=== PATIENT | female | born 1990 | race Two or more races ===

== ENCOUNTER 2018-06-14 15:48 | Observation (INO) | payer BC, OTHER | END 2018-06-14 17:00 | disposition home or self-care (01) | DRG 776 | LOC: LDRP 15:48 | PROVIDERS: ADMIT Obstetrics & Gynecology; ATTEND Obstetrics & Gynecology | DX: O99.89 Other specified diseases and conditions complicating pregnancy, childbirth and the puerperium (principal); M54.9 Dorsalgia, unspecified; Z3A.34 34 weeks gestation of pregnancy | CPT/HCPCS: 59025; 76818; 81002; G0378 ==

== ENCOUNTER 2018-06-21 15:09 | Observation (INO) | payer BC | END 2018-06-21 16:25 | disposition home or self-care (01) | DRG 832 | LOC: LDRP 15:09 | PROVIDERS: ADMIT Obstetrics & Gynecology; ATTEND Obstetrics & Gynecology | DX: O23.43 Unspecified infection of urinary tract in pregnancy, third trimester (principal); N13.30 Unspecified hydronephrosis; Z3A.35 35 weeks gestation of pregnancy | CPT/HCPCS: 59025; 76818; 81002; G0378 ==

== ENCOUNTER 2018-06-27 15:47 | Observation (INO) | payer BC ==
[2018-06-27] MEDS ORDERED: PREN-96 PO (16:26)
== END 2018-06-27 16:50 | disposition home or self-care (01) | DRG 776 ==
LOC: LDRP 15:47
PROVIDERS: ADMIT Obstetrics & Gynecology; ATTEND Obstetrics & Gynecology
DX: O99.89 Other specified diseases and conditions complicating pregnancy, childbirth and the puerperium (principal); N13.30 Unspecified hydronephrosis; Z3A.37 37 weeks gestation of pregnancy
CPT/HCPCS: 59025; 76818; 81002; G0378

== ENCOUNTER 2018-07-04 17:00 | Observation (INO) | payer BC ==
[~2018-07-04 17:00] MED LIST: PREN-96 PO
== END 2018-07-04 19:50 | disposition home or self-care (01) | DRG 832 ==
LOC: LDRP 17:00
PROVIDERS: ADMIT Obstetrics & Gynecology; ATTEND Obstetrics & Gynecology
DX: O23.03 Infections of kidney in pregnancy, third trimester (principal); N13.30 Unspecified hydronephrosis; Z3A.37 37 weeks gestation of pregnancy
CPT/HCPCS: 59025; 76818; 81002; G0378

== ENCOUNTER 2018-07-10 15:09 | Observation (INO) | payer BC | END 2018-07-10 16:05 | disposition home or self-care (01) | DRG 832 | LOC: LDRP 15:09 | PROVIDERS: ADMIT Obstetrics & Gynecology; ATTEND Obstetrics & Gynecology | DX: O23.43 Unspecified infection of urinary tract in pregnancy, third trimester (principal); N13.30 Unspecified hydronephrosis; Z3A.38 38 weeks gestation of pregnancy | CPT/HCPCS: 59025; 76818; 81002; G0378 ==

== ENCOUNTER 2018-07-11 02:58 | Observation (INO) | payer BC ==
[~2018-07-11] VITALS: Ht 170.2 cm; Wt 108.9 kg
== END 2018-07-11 07:30 | disposition home or self-care (01) | DRG 833 ==
LOC: LDRP 02:58
PROVIDERS: ADMIT Obstetrics & Gynecology; ATTEND Obstetrics & Gynecology
DX: O42.913 Preterm premature rupture of membranes, unspecified as to length of time between rupture and onset of labor, third trimester (principal); O26.893 Other specified pregnancy related conditions, third trimester; N89.8 Other specified noninflammatory disorders of vagina; R10.30 Lower abdominal pain, unspecified; Z3A.38 38 weeks gestation of pregnancy
CPT/HCPCS: 59025; 76818; 81002; G0378

== ENCOUNTER 2018-07-15 23:30 | Inpatient (IN) | payer BC ==
[~2018-07-15] VITALS: Ht 170.2 cm; Wt 108.0 kg
[2018-07-15] MEDS ORDERED: LACT. RINGERS/OXYTOCIN 20UNITS 1,000 ML IV SCH (23:42)
[2018-07-15] MEDS ORDERED: LACTATED RINGER'S 1,000 ML IV SCH (23:42)
[2018-07-15] MEDS ORDERED: PHISODERM TOP SOLN 240ML BTL TOP PRN (23:45)
[2018-07-15] MEDS ORDERED: METHYLERGONOVINE MALEATE 0.2 MG/ML AMP IM PRN (23:45)
[2018-07-15] MEDS ORDERED: WITCH HAZEL-GLYCERIN PAD TOP PRN (23:45)
[2018-07-15] MEDS ORDERED: DERMOPLAST 60ML BOTTLE TOP PRN (23:45)
[2018-07-15] MEDS ORDERED: LIDOCAINE 2%HCL (LOCAL ANESTH.) INJ 20ML MDV ID PRN (23:45)
[2018-07-15] MEDS ORDERED: BUTORPHANOL TARTRATE 2 MG/1 ML VIAL IV PRN (23:45)
[2018-07-15] MEDS ORDERED: CARBOPROST TROMETHAMINE 250 MCG/1ML VIAL IM PRN (23:45)
[2018-07-16 00:06] VITALS: BP 115/57
[2018-07-16 00:26] LABS: Eosinophils # (auto) 0 uL; Eosinophils % (auto) 0.3 % (0.0-7.0); Lymphocytes # (auto) 1.6 uL
[2018-07-16 00:28] LABS: Basophils # (auto) 0 uL; Basophils % (auto) 0.3 % (0.0-2.0); Hematocrit 36.9 % (36.0-46.0); Lymphocytes % (auto) 14.8 % (10.0-50.0); Mean Corpuscular Hemoglobin 34.4 pg (28.0-32.0); Mean Corpuscular Hgb Conc. 35.2 g/dL (32.0-36.0); Mean Corpuscular Volume 97.7 fL (80.0-100.0); Monocytes # (auto) 0.7 uL; Monocytes % (auto) 6.2 % (0.0-12.0); Neutrophils # (auto) 8.6 uL; Neutrophils % (auto) 78.4 % (37.0-80.0); Platelet Count (auto) 185 10^3/uL (140-450); Red Blood Cells 3.77 10^6/uL (4.0-5.20); Red Cell Distribution Width 13.6 % (11.8-14.3)
[2018-07-16 00:40] LABS: INR 0.91 (0.9-1.15); Prothrombin Time 9.8 sec (9.27-12.13)
[2018-07-16 00:41] LABS: Urine Bacteria MOD /hpf (None Seen); Urine Blood 1+ /uL (Negative); Urine Specific Gravity 1.013 (1.001-1.035); Urine WBC 15 /hpf (0 - 5)
[2018-07-16 00:43] LABS: Albumin 2.7 g/dL (3.4-5.0); BUN/Creatinine Ratio 13.8; Calcium 8.2 mg/dL (8.5-10.1); Potassium 3.9 mmol/L (3.5-5.1)
[2018-07-16 00:46] LABS: Bilirubin, Total 0.6 mg/dL (0.2-1.0); Total Protein 6.7 g/dL (6.4-8.2)
[2018-07-16] MEDS ORDERED: fentaNYL W ROPIVACAINE 150 ML EPI SCH ×2 (01:15→02:15)
[2018-07-16] MEDS ORDERED: ePHEDrine SULFATE 50 MG/ML AMP IV ONE ×2 (01:15→02:15)
[2018-07-16] MEDS ORDERED: ePHEDrine SULFATE 50 MG/ML AMP ONE (01:24)
[2018-07-16] MEDS ORDERED: fentaNYL W ROPIVACAINE 150 ML EPI ONE (01:26)
[2018-07-16] MEDS ORDERED: LIDOCAINE W/ EPINEPHRINE 1 % INJ 30ML ONE (01:40)
[2018-07-16] MEDS ORDERED: SODIUM CHLORIDE 0.9% 500 ML IV PRN (02:08)
[2018-07-16] MEDS ORDERED: NALOXONE HCL 0.4 MG/ML VIAL IV ONE (02:15)
[2018-07-16 03:15] VITALS: BP 104/55
[2018-07-16] MEDS ORDERED: IBUPROFEN 600 MG TAB PO PRN (04:30)
--- NOTE | 2018-07-16 08:00 | NUR ---
Ambulation: Patient OOB with standby assistance by RN. Patient ambulated to bathroom with steady gait. Patient able to void without difficulty. [facility] teaching provided with returned demonstration by patient. Clean gown provided and bed linen changed. Patient ambulated back to bed with steady gait and no distress noted.
[2018-07-16 10:35] VITALS: BP 107/58
--- NOTE | 2018-07-16 12:30 | NUR ---
Bath: Pre-bath temp 98.5 , hair washed at sink with the completion of the bath done under radiant warmer. tolerated well, temperature after bath was 98.2. Addendum: 07/17/18 at 0750 by SIENNA GOODWIN RN RN wrong patient
[2018-07-16 15:30] VITALS: BP 109/65
[2018-07-16 19:10] VITALS: BP 109/64
[2018-07-17 02:50] VITALS: BP 118/69
--- NOTE | 2018-07-17 02:50 | NUR ---
Discharge: Discharge instructions given as ordered. Pt encouraged to follow up with ENCYCLOPEDIA RESEARCH WORKER as instructed. All questions and concerns addressed. Patient verbalized understanding. Medication reconciliation completed and copy given to patient. Addendum: 07/17/18 at 0320 by TAMMY WELSH RN Signed rear copy of provided discharge instructions placed in chart.
[2018-07-17 06:06] LABS: RPR Non Reactive (Non Reactive)
[2018-07-17 07:00] VITALS: BP 109/63
--- NOTE | 2018-07-17 09:20 | NUR ---
Discharge: Discharge instructions given as ordered. Pt encouraged to follow up with SALES EXECUTIVE as scheduled on 08/01/18 at 0930. All questions and concerns addressed. Patient verbalized understanding. Medication reconciliation completed and copy given to patient. All required/requested vaccines given and copies of vaccinations given to patient. Patient encouraged to prepare to depart unit.
--- NOTE | 2018-07-17 09:35 | NUR ---
Discharge: Patient ambulates to personal vehicle with all personal belongings, accompanied by staff and family member. No distress noted at time of departure, no adverse changes in status since initial assessment.
== END 2018-07-17 09:35 | disposition home or self-care (01) | DRG 807 ==
LOC: LDRP 23:30 → OBSVTOIN 23:30 → LDRP 23:43
PROVIDERS: ADMIT Specialist; ATTEND Specialist
PROC: 10E0XZZ Delivery of Products of Conception, External Approach (ICD-10-PCS; principal; 2018-07-16)
PROC: 3E0R3BZ Introduction of Anesthetic Agent into Spinal Canal, Percutaneous Approach (ICD-10-PCS; 2018-07-16)
PROC: 00HU33Z Insertion of Infusion Device into Spinal Canal, Percutaneous Approach (ICD-10-PCS; 2018-07-16)
PROC: 10907ZC Drainage of Amniotic Fluid, Therapeutic from Products of Conception, Via Natural or Artificial Opening (ICD-10-PCS; 2018-07-16)
PROC: 0UQGXZZ Repair Vagina, External Approach (ICD-10-PCS; 2018-07-16)
DX: O71.4 Obstetric high vaginal laceration alone (principal); Z37.0 Single live birth; Z3A.39 39 weeks gestation of pregnancy
CPT/HCPCS: 36415; 51702; 59025; 59409; 62282; 80053; 81001; 85025; 85610; 85730; 86592; 86850; 86900; 86901; 87340; 94760; 96365; 96366; 96374; 96375; G0378; J2590; J3010